=== PATIENT | female | born 1970 | race African-American/Black ===

== ENCOUNTER → 2017-07-06 14:51 | Outpatient (CLI) | payer OTHER ==
[~2017-07-06 14:51] MED LIST: BENADRYL25 MG PO; CLOTRIMAZOLE-BE30 ML TOPICAL; HYDROCODONE-APA1 TAB PO
[2017-07-06 15:39] LABS: BASOPHILS 0.4 % (0-2); EOSINOPHILS 0.7 % (0-7); HEMATOCRIT 35.1 % (36.0-48.0); HEMOGLOBIN 11.2 g/dL (12-16); LYMPHOCYTES 34.6 % (15-50); MCH 26.4 pg (26.0-34.0); MCHC 31.9 g/dL (31.0-37.0); MCV 82.6 fL (80.0-100.0); MEAN PLATELET VOLUME 8.7 fL (7.4-10.4); MONOCYTES 8.4 % (2-11); NEUTROPHILS 55.9 % (40-80); PLATELET COUNT 326 10x3/uL (130-400); RBC 4.25 10x6/uL (4.00-5.40); WBC 5.6 10x3/uL (4.8-10.8)
[2017-07-06 16:04] LABS: ALBUMIN 3.7 g/dL (3.4-5.0); ALKALINE PHOSPHATASE 76 U/L (46-116); ALT (SGPT) 19 U/L (10-68); BILIRUBIN - TOTAL 0.27 mg/dL (0.2-1.3); CALC OSMOLALITY 279 mosm/kg (275-300); CALCIUM 9.2 mg/dL (8.5-10.1); CARBON DIOXIDE 25.5 mmol/L (21.0-32.0); CHLORIDE - SERUM 104 mmol/L (98-107); CREATININE - SERUM 0.8 mg/dL (0.6-1.3); GLUCOSE 77 mg/dL (74-106); LDH 158 U/L (81-234); POTASSIUM - SERUM 4.1 mmol/L (3.5-5.1); PROTEIN - SERUM 7.4 g/dL (6.4-8.2); SODIUM 141 mmol/L (136-145); UREA NITROGEN 12 mg/dL (7-18); eGFR NON AFRICAN AMERICAN 81 mL/min (90-120)
[2017-07-06 16:08] LABS: INR 1.05 (0.85-1.17); PROTIME 13.5 SECONDS (11.6-15.0)
[2017-07-22 10:59] VITALS: BMI 23.7
== END | disposition home or self-care (01) ==
LOC: D.CT 14:51
PROVIDERS: Internal Medicine Gastroenterology
DX: K92.1 Melena (principal); C18.5 Malignant neoplasm of splenic flexure

== ENCOUNTER 2017-07-21 05:52 | Inpatient (IN) | payer OTHER ==
[2017-07-20 11:49] LABS: BASOPHILS 0.5 % (0-2); HEMATOCRIT 35.7 % (36.0-48.0); HEMOGLOBIN 11.6 g/dL (12-16); LYMPHOCYTES 29.3 % (15-50); MCH 26.7 pg (26.0-34.0); MCHC 32.5 g/dL (31.0-37.0); MCV 82.1 fL (80.0-100.0); MEAN PLATELET VOLUME 9.2 fL (7.4-10.4); MONOCYTES 4.8 % (2-11); NEUTROPHILS 64.4 % (40-80); RBC 4.35 10x6/uL (4.00-5.40); RDW 13.8 % (11.5-14.5); WBC 6.3 10x3/uL (4.8-10.8)
[2017-07-20 11:53] LABS: PLATELET COUNT 401 10x3/uL (130-400)
[2017-07-20 11:58] LABS: CALC OSMOLALITY 277 mosm/kg (275-300); CALCIUM 9.3 mg/dL (8.5-10.1); CARBON DIOXIDE 29.1 mmol/L (21.0-32.0); CHLORIDE - SERUM 105 mmol/L (98-107); CREATININE - SERUM 0.8 mg/dL (0.6-1.3); GLUCOSE 88 mg/dL (74-106); POTASSIUM - SERUM 3.7 mmol/L (3.5-5.1); SODIUM 141 mmol/L (136-145); UREA NITROGEN 7 mg/dL (7-18); eGFR NON AFRICAN AMERICAN 81 mL/min (90-120)
[2017-07-20 11:59] LABS: APTT 27.6 SECONDS (22.8-39.4); INR 1.09 (0.85-1.17)
[~2017-07-21] VITALS: Ht 172.7 cm; Wt 70.8 kg
[~2017-07-21 05:52] MED LIST changes: -HYDROCODONE-APA1 TAB PO
[2017-07-21 09:36] VITALS: BP 128/87; BMI 24.3
[2017-07-21 10:12] LABS: HCG URINE NEGATIVE (NEGATIVE)
--- NOTE | 2017-07-21 15:32 | NUR ---
TO ROOM 2510 WITH SANTIAGO CATHER , IV X 2 SITE DRESSING CLEAN AND DRY
--- NOTE | 2017-07-21 16:52 | NUR ---
REPORT CALLED TO REN IRVING
--- NOTE | 2017-07-21 17:34 | NUR ---
PATIENT TO ROOM WITH IV INTACT. VS STABLE. NO COMPLAINTS. CALL LIGHTW ITHINR EACH.
[2017-07-21 17:53] VITALS: BMI 23.7
--- NOTE | 2017-07-21 18:15 | NUR ---
PATIENT DECKHAND OYSTER DREDGE SET UP AND WORKING. REFUSED BSCDS. STATED SHE WOULD WERE THEM AT NIGHT. SANTIAGO INTACT. DRESSING TO ABDOMEN AND BANDAIDS INTACT. FAMILY AT BEDSIDE. CALL LIGHTW ITHINR EACH.
--- NOTE | 2017-07-21 19:52 | NUR ---
RESTING, AT BEDSIDE, DENIES NEEDS, CALL LIGHT IN REACH, BED LOWEST POSITION, WILL CONTINUE TO MONITOR
[2017-07-21 20:00] VITALS: BP 114/74
[2017-07-22] VITALS: BP 117/66
[2017-07-22 04:00] VITALS: BP 105/60
--- NOTE | 2017-07-22 05:00 | NUR ---
PT RESTING IN BED WITH NO DISTRESS. RESPIRATIONS ARE EVEN AND UNLABORED. SIDE RAILS ARE UP X 2. BED IS IN LOWEST POSITION. CALL LIGHT IS WITHIN REACH.
[2017-07-22 05:56] LABS: BASOPHILS 0.1 % (0-2); EOSINOPHILS 0 % (0-7); HEMATOCRIT 33.5 % (36.0-48.0); HEMOGLOBIN 10.9 g/dL (12-16); IMMATURE GRANULOCYTES 0.3 % (0-5); LYMPHOCYTES 11.5 % (15-50); MCH 26.4 pg (26.0-34.0); MCHC 32.5 g/dL (31.0-37.0); MCV 81.1 fL (80.0-100.0); MEAN PLATELET VOLUME 9.6 fL (7.4-10.4); MONOCYTES 5.6 % (2-11); NEUTROPHILS 82.5 % (40-80); PLATELET COUNT 408 10x3/uL (130-400); RBC 4.13 10x6/uL (4.00-5.40)
[2017-07-22 06:13] LABS: WBC 11.3 10x3/uL (4.8-10.8)
--- NOTE | 2017-07-22 07:00 | NUR ---
REPORT RECIEVED ASSUMED CARE. PATIENT IN BED WITH IV INTACT. NO COMPLAINTS AT THIS TIME. CALL LIGHT WITHIN REACH.
[2017-07-22 07:48] LABS: CALC OSMOLALITY 277 mosm/kg (275-300); CALCIUM 8.4 mg/dL (8.5-10.1); CHLORIDE - SERUM 105 mmol/L (98-107); CREATININE - SERUM 0.8 mg/dL (0.6-1.3); GLUCOSE 82 mg/dL (74-106); POTASSIUM - SERUM 3.6 mmol/L (3.5-5.1); SODIUM 141 mmol/L (136-145); UREA NITROGEN 7 mg/dL (7-18); eGFR NON AFRICAN AMERICAN 81 mL/min (90-120)
[2017-07-22 08:09] VITALS: BP 116/61
--- NOTE | 2017-07-22 10:15 | NUR ---
PATIENT SANTIAGO REMOVED PER PHYSICIAN ORDERS. TOLERATED WITH SMALL AMOUNT OF PAIN. IV INTACT. CALL LIGHT WITHIN REACH.
[2017-07-22 10:59] VITALS: Ht 172.7 cm; Wt 70.8 kg
--- NOTE | 2017-07-22 11:30 | NUR ---
PATIENT UP TO BR. VOIDED WITH NO DIFFICULTY. HAD BM WELL. SMALL AMOUNT OF BLOOD NOTED. EXPLAINED TO PATIENT THAT IT IS NORMAL TO HAVE A SMALL AMOUNT OF BLOOD AFTER IN STOOL POST OP. VERBALIZED UNDERSTANDING. AND FAMILY AT BEDSIDE. CALL LIGHT WITHIN REACH.
[2017-07-22 12:51] VITALS: BP 123/72
[2017-07-22 15:36] VITALS: BP 116/69
--- NOTE | 2017-07-22 16:50 | NUR ---
PATIENT AMBULATED AROUND THE UNIT 2 TIMES WITH NO PROBLEMS. IV INTACT. CALL LIGHTW ITHIN REACH.
[2017-07-22 20:00] VITALS: BP 119/70
[2017-07-23] VITALS: BP 113/63
[2017-07-23 04:00] VITALS: BP 123/74
[2017-07-23 05:48] LABS: BASOPHILS 0.1 % (0-2); EOSINOPHILS 0.1 % (0-7); HEMATOCRIT 34.8 % (36.0-48.0); IMMATURE GRANULOCYTES 0.2 % (0-5); LYMPHOCYTES 18.9 % (15-50); MCH 26.1 pg (26.0-34.0); MCHC 31.6 g/dL (31.0-37.0); MCV 82.5 fL (80.0-100.0); MEAN PLATELET VOLUME 9.6 fL (7.4-10.4); MONOCYTES 3.5 % (2-11); NEUTROPHILS 77.2 % (40-80); PLATELET COUNT 421 10x3/uL (130-400); RBC 4.22 10x6/uL (4.00-5.40); RDW 14.4 % (11.5-14.5)
[2017-07-23 06:02] LABS: WBC 8.2 10x3/uL (4.8-10.8)
[2017-07-23 06:05] LABS: CALC OSMOLALITY 274 mosm/kg (275-300); CALCIUM 8.7 mg/dL (8.5-10.1); CHLORIDE - SERUM 104 mmol/L (98-107); CREATININE - SERUM 0.8 mg/dL (0.6-1.3); GLUCOSE 72 mg/dL (74-106); POTASSIUM - SERUM 3.2 mmol/L (3.5-5.1); SODIUM 139 mmol/L (136-145); UREA NITROGEN 7 mg/dL (7-18); eGFR NON AFRICAN AMERICAN 81 mL/min (90-120)
--- NOTE | 2017-07-23 08:00 | NUR ---
ASSESSMENT PER FLOW SHEET.PT WITHOUT DISTRESS.DRESSING TO ABDOMEN CDI. LAP SITES X2 TO RLQ CDI. DENIES NEEDS AT PRESENT. REPORTS SLIGHTLY BLOODY STOOL YESTERDAY.PT STATES SHE IS PASSING GAS.MONITOR,CALL LIGHT IN REACH.
[2017-07-23 08:11] VITALS: BP 127/72
[2017-07-23 12:45] VITALS: BP 124/69
--- NOTE | 2017-07-23 15:13 | NUR ---
TOLERATING CLD. PT STATES SHE HAS BURPED AND PASSED GAS AGAIN AFTER EATING
[2017-07-23 15:43] VITALS: BP 127/78
--- NOTE | 2017-07-23 19:35 | NUR ---
REMAINS WITHOUT NEEDS,WITHOUT CHANGE.CONT PLAN OF CARE
--- NOTE | 2017-07-23 20:11 | NUR ---
PATIENT IS ALERT AND ORIENTED. DENIES NEEDS. NO SIGNS OF DISTRESS.
[2017-07-23 21:20] VITALS: BP 119/68
[2017-07-24 00:56] VITALS: BP 110/64
[2017-07-24 04:52] VITALS: BP 120/67
--- NOTE | 2017-07-24 08:00 | NUR ---
ASSESSMENT PER FLOW SHEET.PT WITHOUT DISTRESS. DENIES PAIN AT PRESENT.TOLERATING CLD AND STATES PASSING GAS.
[2017-07-24 08:02] VITALS: BP 113/71
--- NOTE | 2017-07-24 12:13 | NUR ---
NUTRITION F/U CHART REVIEWED. DIET FULL LIQUID >AAT. WILL PROVIDE DIET, MONITOR PO INTAKE. PT PROGRESS. RD FOLLOWING
--- NOTE | 2017-07-24 12:22 | NUR ---
Patient Name: TG MEDLEY Admission Status: Elective Accout number: [id number] Admission Date: 07-21-2017 : 1970 Admission Diagnosis:MALIGNANT NEOPLASM OF SIGMOID COLON Attending: LEXIS BUNCH Current LOS: 3 Anticipated DC Date: 07-27-2017 Planned Disposition: Home Primary Insurance: [facility] PPO Discharge Planning Comments: CM MET WITH PATIENT AND FRIEND (RUDY) REGARDING D/C NEEDS AND PLANS. PATIENT STATED RUDY WILL DRIVE HER HOME AT DISCHARGE. PATIENT STATED THERE ARE 2 STEPS TO ENTER THEIR HOME AND NO STAIRS INSIDE. PATIENT IS INDEPENDENT WITH HER CARE AND HAS NO DME AT HOME. PATIENTS PCP IS DR. PIERCE AND PHARMACY IS [facility] AT [facility]. PATIENT IS REFUSING HOME HEALTH AT THIS TIME. CM WILL CONTINUE TO FOLLOW D/C NEEDS AND PLANS. PCP DR. KARI BEAN AT [address] RUDY (FRIEND-LIVES WITH) [phone] Field Hockey And Lacrosse Coach: Jade Taylor Is the patient Alert and Oriented? Yes 0 * How many steps to enter\exit or inside your home? 2 0 * PCP DR. PIERCE 0 * Pharmacy [facility] 0 * Preadmission Environment Home with Family 0 * ADLs Independent 0 * Equipment None 0 * List name and contact numbers for known caregivers / representatives who currently or will assist patient after discharge: RUDY JACKSON (FRIEND) [phone] 0 * Community resources currently utilized None 0 * Additional services required to return to the preadmission environment? Yes 0 * Can the patient safely return to the preadmission environment? Yes 0 * Has this patient been hospitalized within the prior 30 days at any hospital? No 0 Grand Total: 0
[2017-07-24 12:26] VITALS: BP 126/77
--- NOTE | 2017-07-24 13:40 | NUR ---
AMBULATING IN HALLS.PT REMAINS WITHOUT DISTRESS.
[2017-07-24] MEDS ORDERED: HYDROCODONE-APA1 TAB PO (15:02)
[2017-07-24 15:51] VITALS: BP 119/72
--- NOTE | 2017-07-24 17:36 | NUR ---
IV DCD X2 WITH CATH INTACT.DISCHARGE INSTRUCTIONS,STATES UNDERSTANDING. RX TO PT FOR PAIN MEDS PER
--- NOTE | 2017-07-24 17:56 | NUR ---
LEFT UNIT VIA WHEELCHAIR
--- NOTE | 2017-07-27 14:45 | OP ---
PATIENT NAME: TG MEDLEY MEDICAL RECORD: [id number] :[birth year] LOCATION:D.MS [id number] ADMISSION DATE:07/21/17 SURGEON: ESA BUNCH MD DATE OF OPERATION: 07/21/2017 PREOPERATIVE DIAGNOSIS: Sigmoid colon cancer. POSTOPERATIVE DIAGNOSIS: Sigmoid colon cancer. PROCEDURE: Hand-assisted laparoscopic sigmoid colectomy. SURGEON: Esa Bunch MD REPORT OF PROCEDURE: The patient's abdomen was prepped and draped in sterile fashion. A cutdown was made in the suprapubic region and electrocautery was used to dissect through the subcutaneous tissues. We penetrated the fascia and entered the abdominal cavity. Once inside, a Gelport was inserted. We were able to visualize the mass, and the patient's sigmoid colon was actually free and mobile. We transected the bowel at the proximal rectum using a 55 blue load STEFANO stapler. The mesentery was then taken down and continued to the superior hemorrhoidal vessel as it took off from the aorta. At this point, we placed 5-mm trocars just anterior to the right anterior superior iliac crest and in the right abdomen at the level of the umbilicus. At this point, we insufflated the abdomen and inspected. The patient's liver had no sign of any external lesions present. The abdominal wall had no sign of carcinomatosis, and the patient's omentum appeared to be normal with no masses or lesions. There was no sign of ascitic fluid. We took down the lateral attachments of the white line of Toldt on the left colon and continued this up to the sigmoid colon. The sigmoid colon was not mobilized. At this point, we had good mobilization of the left colon. I was able to visualize the patient's left ureter and it was not damaged. The superior hemorrhoidal vessel was transected at its base using a 45 white load Endo-STEFANO stapler. The distal descending colon was then transected using a 55 blue load STEFANO stapler. At this point, we had the sigmoid colon completely freed up and the mass was easily palpated in the middle of the specimen. Grossly, the patient's lymph nodes appeared to be mildly enlarged. The specimen was sent off for permanent. An opening was made at the base of the distal descending colon and a 2-0 Prolene was used to make a pursestring. A 29 EEA anvil was inserted and the pursestring was tied down tightly. We then placed multiple anal dilators up through the anus and rectum and then followed with a 29 EEA stapler. An end-to-end anastomosis was performed under direct visualization. At the conclusion of this, there were noted to be 2 intact rings of tissue in the stapler. We then placed air into the rectum with the anastomosis under water and saw no signs of leak being present. I then oversewed the staple line using multiple lemberted 3-0 silks. At this point, the omentum was pulled down into the pelvis and rested over top of the anastomosis. We irrigated out the abdomen thoroughly with normal saline and assured there was no sign of any active bleeding, which there was none. At this point, the ports and insufflation were then removed. All of our gloves and gowns were changed at this time. The midline fascia was closed with running #1 looped PDS times 2. We then irrigated out the abdominal wound and reapproximated the edges with interrupted 3-0 Vicryls. The skin incisions were all closed with renetta and dressed appropriately. COMPLICATIONS: None. OPERATIVE REPORT [id number] TG MEDLEY CONDITION: Stable. ANESTHESIA: General endotracheal. BLOOD LOSS: Minimal. TRANSINT:[id number] Voice Confirmation ID: [id number] DOCUMENT ID: [id number] ESA BUNCH MD at 1445 CC: BLAKE PIERCE DO, SIMI NUNN MD and CLAUDIA DILLARD [id number] DICTATION DATE: 07/21/17 1332 TOBACCO DRYING MACHINE OPERATOR: 07/21/17 1429 DIS IN 07/24/17 [facility] [address] [place] [address]
--- NOTE | 2017-09-25 09:56 | DS ---
PATIENT:TG MEDLEY :[birth year] MEDICAL RECORD: [id number] DISCHARGE SUMMARY ADMISSION DATE: 07/21/17 DISCHARGE DATE: 07/24/17 DATE OF ADMISSION: 07/21/2017. DATE OF DISCHARGE: 07/24/2017. ADMISSION DIAGNOSIS: Sigmoid colon cancer. DISCHARGE DIAGNOSIS: Sigmoid colon cancer. PROCEDURE: Hand-assisted laparoscopic sigmoid colectomy on 07/21/2017. CONSULTATIONS: None. REPORT OF HOSPITALIZATION: The patient was admitted to the hospital after a successful hand-assisted laparoscopic sigmoid colectomy. The patient had a normal postoperative course. Initially, she just had pain control and mobilization. Eventually, we were able to start the patient on a diet, which she was able to tolerate and advance up appropriately. On the day of discharge, she was tolerating a regular diet and ambulating with minimal support. The patient's pathology report returned and this showed that patient did have invasive adenocarcinoma of the sigmoid colon with 0 out of 15 lymph nodes showing signs of metastatic disease. The path report was discussed with the patient and she was discharged home. DISCHARGE INSTRUCTIONS: Return to clinic or call with any questions or concerns, fevers, chills, nausea, vomiting, or worsening abdominal pain. ACTIVITIES: No heavy lifting or straining for 6 weeks postoperatively. FOLLOWUP: In clinic with me in 1 week. DISCHARGE MEDICATIONS: Resume home medications with the inclusion of [place] 10. TRANSINT:[id number] Voice Confirmation ID: [id number] DOCUMENT ID: [id number] LEXIS BUNCH MD at 0956 CC: [id number] DICTATION DATE: 09/10/17 1220 HOME DAY CARE PROVIDER: 09/10/17 1607 DIS IN 07/24/17 [facility] [address] [place] [address]
== END 2017-07-24 17:57 | disposition home or self-care (01) | DRG 331 ==
LOC: D.SDCHOLD 05:52 → D.MS 17:00 → D.SDCHOLD 07-23 14:42 → D.MS 07-23 14:44
PROVIDERS: Anesthesiology; ADMIT Surgery
PROC: 0DTN0ZZ Resection of Sigmoid Colon, Open Approach (ICD-10-PCS; principal; 2017-07-21 11:00)
DX: C18.7 Malignant neoplasm of sigmoid colon (principal)

== ENCOUNTER 2018-11-11 08:30 | Day surgery (SDC) | payer OTHER ==
[2018-11-10 15:04] LABS: BASOPHILS 0.5 % (0-2); EOSINOPHILS 1.4 % (0-7); HEMATOCRIT 35.6 % (36.0-48.0); HEMOGLOBIN 11.8 g/dL (12-16); LYMPHOCYTES 32.9 % (15-50); MCH 27.6 pg (26.0-34.0); MCHC 33.1 g/dL (31.0-37.0); MCV 83.4 fL (80.0-100.0); MEAN PLATELET VOLUME 8.7 fL (7.4-10.4); MONOCYTES 6.2 % (2-11); RBC 4.27 10x6/uL (4.00-5.40); RDW 13.5 % (11.5-14.5); WBC 5.8 10x3/uL (4.8-10.8)
[2018-11-10 15:16] LABS: CALC OSMOLALITY 277 mosm/kg (275-300); CALCIUM 9.1 mg/dL (8.5-10.1); CARBON DIOXIDE 30.3 mmol/L (21.0-32.0); CHLORIDE - SERUM 103 mmol/L (98-107); CREATININE - SERUM 0.8 mg/dL (0.6-1.3); GLUCOSE 84 mg/dL (74-106); POTASSIUM - SERUM 3.8 mmol/L (3.5-5.1); SODIUM 141 mmol/L (136-145); UREA NITROGEN 7 mg/dL (7-18); eGFR NON AFRICAN AMERICAN 81 mL/min (90-120)
[2018-11-10 15:21] LABS: PLATELET COUNT 298 10x3/uL (130-400)
[~2018-11-11] VITALS: Ht 175.3 cm; Wt 68.9 kg
--- NOTE | ~2018-11-11 | OP ---
PATIENT NAME: TG MEDLEY MEDICAL RECORD: [id number] :68 LOCATION:DALYX ADMISSION DATE: SURGEON: ESA BUNCH MD DATE OF OPERATION: 11/11/2018 PREOPERATIVE DIAGNOSIS: History of colon cancer with elevated CEA levels. POSTOPERATIVE DIAGNOSIS: History of colon cancer with elevated CEA levels. PROCEDURE: Diagnostic laparoscopy with pelvic biopsy. SURGEON: Esa Bunch MD REPORT OF PROCEDURE: The patient's abdomen was prepped and draped in sterile fashion. A Veress needle was inserted in the left upper quadrant and the abdomen was insufflated. A 5-mm trocar was placed in the right lateral abdomen. At this point, we could see the Veress needle and there was no sign of any injury to bowel or surrounding structures. A 5-mm trocar was placed near the epigastrium and a final one was placed in the left lateral abdomen. The patient's abdominal wall and omentum looked normal with no masses or lesions visible. We inspected the liver and the top and bottom surfaces of the liver appeared to be normal with no signs of any distinct masses. The anterior aspect of the stomach was normal with no inflammation or masses. We elevated the patient's small bowel and looking at the mesentery and posterior abdominal wall, there were no masses or lesions and I did not see any evidence of any retroperitoneal lymph nodes or masses. Down in the pelvis, we could see the tip of the appendix and as we followed this back to the right colon, the appendix appeared to be normal. The right ovary was normal in caliber with normal appearing fallopian tube. The left ovary had a very large cyst present and the fallopian tube appeared normal. As we progressed in the pelvis, there was a little bit of clear normal appearing ascitic fluid and in the deep pelvis near the bladder, there is a firm nodule present just to the right of midline. I was not able to mobilize this well, and it appeared to be less than 2 cm in size. There was a portion of this which was sticking off and I was able to transect this using electrocautery. We placed this into an EndoCatch bag and sent this off for permanent specimen. Only about half of this mass was completely excised for fear of what may be underneath it and I was not 100% sure this was a cancerous lesion. The remainder of the pelvis appeared to be normal. As we pulled back to the pelvic inlet on the right of midline, there were some nodules underneath the peritoneum. I opened up this peritoneum and the nodules are actually incorporated into the vascular structures and were not lymph nodes, seem to be more of a calcified lesion. Due to it being a portion of these vascular structures, I elected not to remove these. On the left side of the abdomen at the pelvic inlet, I saw no evidence of these masses being visible. At this point, we inspected the remainder of the patient's colon and there was no sign of any masses or lesions visible. The anastomosis at the pelvic inlet from the previous sigmoid colectomy was well healed with no signs of any abscesses or strictures. There were no adhesions present throughout the patient's abdominal cavity. At this point, the insufflation and the trocars were removed. The 5-mm trocar in the right lateral abdomen had been exchanged for a 12-mm trocar to facilitate removal of the lesion. This fascial area was closed with an interrupted 0 Vicryl. The wounds were then irrigated out with normal saline and infused with 10 mL of 0.25% Marcaine with epinephrine and then closed with subcutaneous 5-0 Monocryl. OPERATIVE REPORT [id number] TG MEDLEY COMPLICATIONS: None. CONDITION: Stable. ANESTHESIA: General endotracheal and local. BLOOD LOSS: Minimal. TRANSINT:[id number] Voice Confirmation ID: [id number] DOCUMENT ID: [id number] ESA BUNCH MD CC: BLAKE PIERCE DO and YUNI LIRA MD [id number] DICTATION DATE: 11/11/18 1327 ITEM PROCESSING CLERK: 11/11/18 1408 REG [facility] [address] [place] [id number]
[~2018-11-11 08:30] MED LIST changes: +HYDROCODONE-APA1 TAB PO
[2018-11-11 08:54] VITALS: BP 124/76; Ht 175.3 cm; Wt 68.9 kg
[2018-11-11 09:20] LABS: HCG URINE NEGATIVE (NEGATIVE)
[2018-11-11 11:10] LABS: APTT 30.2 SECONDS (22.8-39.4); INR 1.04 (0.85-1.17); PROTIME 13.1 SECONDS (11.6-15.0)
[2018-11-11] MEDS ORDERED: HYDROCODON-ACE1 EA10 PO (13:21)
--- NOTE | 2018-11-11 13:57 | NUR ---
CARE TO LAURA SHERIDAN @9023
--- NOTE | 2018-11-11 16:00 | NUR ---
PATIENT AMBULATES TO BATHROOM AND VOIDS LARGE AMOUNT IN TOILET WITHOUT DIFFICULTY. RIGHT AC PIV DC'D WITH TIP INTACT. PATIENT DRESSING IN PERSONAL CLOTHING 1615 DISCHARGE INSTRUCTIONS REVIEWED WITH PATIENT AND SPOUSE, DISCHARGED HOME VIA WHEELCHAIR TO PRIVATE VEHICLE WITH SPOUSE
== END 2018-11-11 16:15 | disposition home or self-care (01) ==
LOC: D.OPS 08:30
PROVIDERS: Anesthesiology; ATTEND Surgery
DX: C79.89 Secondary malignant neoplasm of other specified sites (principal); R97.0 Elevated carcinoembryonic antigen [CEA]; Z85.038 Personal history of other malignant neoplasm of large intestine

== ENCOUNTER 2018-12-16 05:55 | Day surgery (SDC) | payer OTHER ==
[2018-12-15 16:46] LABS: BASOPHILS 0.5 % (0-2); EOSINOPHILS 1.4 % (0-7); HEMATOCRIT 35.1 % (36.0-48.0); HEMOGLOBIN 11.6 g/dL (12-16); IMMATURE GRANULOCYTES 0.2 % (0-5); LYMPHOCYTES 31.7 % (15-50); MCH 27.4 pg (26.0-34.0); MCV 82.8 fL (80.0-100.0); MONOCYTES 5.4 % (2-11); NEUTROPHILS 60.8 % (40-80); PLATELET COUNT 297 10x3/uL (130-400); RBC 4.24 10x6/uL (4.00-5.40); RDW 13.5 % (11.5-14.5); WBC 6.3 10x3/uL (4.8-10.8)
[2018-12-15 16:52] LABS: APTT 27.5 SECONDS (22.8-39.4); INR 1.03 (0.85-1.17)
[2018-12-15 16:55] LABS: CALC OSMOLALITY 281 mosm/kg (275-300); CARBON DIOXIDE 30.2 mmol/L (21.0-32.0); CHLORIDE - SERUM 106 mmol/L (98-107); CREATININE - SERUM 0.8 mg/dL (0.6-1.3); GLUCOSE 92 mg/dL (74-106); POTASSIUM - SERUM 3.8 mmol/L (3.5-5.1); SODIUM 142 mmol/L (136-145); UREA NITROGEN 10 mg/dL (7-18); eGFR NON AFRICAN AMERICAN 81 mL/min (90-120)
[~2018-12-16] VITALS: Ht 172.7 cm; Wt 68.5 kg
[~2018-12-16 05:55] MED LIST changes: +HYDROCODON-ACE1 EA10 PO
[2018-12-16] MEDS ORDERED: HYDROCODON-ACE1 EA10 PO (06:25)
[2018-12-16] MEDS ORDERED: VITAMIN E200 UNI1 PO (06:26)
[2018-12-16] MEDS ORDERED: VITAMIN B-12500 MC1 PO (06:26)
[2018-12-16] MEDS ORDERED: MULTI-DAY VITAM1 TAB PO (06:26)
[2018-12-16] MEDS ORDERED: VITAMIN D31000 UNIT PO (06:27)
[2018-12-16 06:30] VITALS: BP 112/88; BMI 23.0
[2018-12-16 06:54] LABS: HCG URINE NEGATIVE (NEGATIVE)
--- NOTE | 2018-12-16 08:41 | NUR ---
YELLOW FINS USED FOR LITH POSITION FOR DR. SHERIN BRENNAN
--- NOTE | 2018-12-16 11:18 | OP ---
PATIENT NAME: TG MEDLEY MEDICAL RECORD: [id number] :68 LOCATION:D.OPS ADMISSION DATE: SURGEON: XAVI DUFF MD DATE OF OPERATION: 12/16/2018 SURGEON: Xavi Duff MD ANESTHESIA: General anesthesia by Austin Brody CRNA DIAGNOSES: Metastatic colon cancer with a left ovarian cyst. PROCEDURES: Cystoscopy, bilateral ureteral stent insertion. FINDINGS: Single ureteral orifices bilaterally. No bladder tumors. Left distal ureteral obstruction. BLOOD LOSS: None. SPECIMENS: None. CLINICAL HISTORY: This is a 48-year-old female, who has a history of colon cancer, which has been resected. She has a known metastatic mass in the right pelvis. Dr. Seymour is going to attempt removal of this mass today as well as placement of a port for chemotherapy. Dr. Corona will be also involved in the surgery to deal with a left ovarian cyst. They have requested placement of bilateral ureteral stents to identify the ureters during the surgery. The patient has been given general anesthesia. She has been placed in lithotomy position and she has been prepped and draped. DESCRIPTION OF PROCEDURE: Cystoscopy was performed using a 21-Tanzanian cystoscope with 30-degree lens. Single ureteral orifices are seen on each side. On the left side, I inserted the 5-Tanzanian open-ended ureteral catheter. I could not get past about the distal one-third of the ureter as there was some obstruction here. I had to place a Sensor wire through the lumen of the ureteral catheter up into the renal pelvis. Finally, I was able to get past the obstruction site and get the catheter all the way up into the renal pelvis. The wire was then withdrawn. On the right side, the ureteral catheter went up without any resistance. At this point, the scope was removed, leaving the [address] A 16-Tanzanian Galindo catheter was then placed into the bladder and the balloon was inflated with 10 cc of sterile water. A connecting device was used to allow the ureteral catheters to drain into the Galindo catheter lumen. The entire assembly was put to bag drainage. The patient will be reprepped and redraped for Dr. Seymour and Dr. Corona's surgery. TRANSINT:[id number] Voice Confirmation ID: [id number] DOCUMENT ID: [id number] XAVI DUFF MD at 1111 CC: [id number] DICTATION DATE: 12/16/18 0932 GEARCASE ASSEMBLER: 12/16/18 1034 REG [facility] [address] [place] [id number]
--- NOTE | 2018-12-16 12:47 | NUR ---
PT ADMITTED FROM SX. 97.4. 99% ON RA. 95/59.73.16. NO S/S OF ACUTE DISTRESS. AT BEDIDE. CL IN PLACE.
[2018-12-16 12:49] VITALS: BP 95/59
[2018-12-16 13:08] VITALS: BP 109/71; BMI 23.0
--- NOTE | 2018-12-16 18:37 | NUR ---
PT RESTING IN BED, "I AM CONFUSED, I WAS SUPPOSE TO GO HOME AFTER SX" EXPLAINED TO PT THAT THE SURGERY WAS MORE EXTENSIVE AND THAT SHE NEEDED TO BE MONITORED OVERNIGHT. PT TEARFUL, "I AM SCARED I JUST DO NOT KNOW WHAT IS GOING ON." CONSOLED PT AND PT "FEELS BETTER". ASSISTED PT TO SIDE OF BED. PT STATES, "THIS FEELS SO GOOD." NO S/S OF ACUTE DISTRESS. CL IN PLACE. AT BEDSIDE.
--- NOTE | 2018-12-16 18:53 | NUR ---
I have reviewed this patient and I concur with the Shift Assessment completed by the Licensed Practical Nurse today this shift.
--- NOTE | 2018-12-16 20:10 | NUR ---
PT RESTING IN BED. ALERT AND ORIENTED. NO SIGNS OF DISTRESS. BREATHING EVEN AND UNLABORED. PT STATES NO PROBLEMS AT THIS TIME. IV SITE RT HAND DRESSING CLEAN DRY AND INTACT. NO SIGNS OF INFECTION. SKIN CLEAN DRY AND INTACT. ABD DRESSING CLEAN DRY AND INTACT. SANTIAGO IN PLACE NO SIGNS OF INFECTION AT INSERTION SITE. URINE LIGHT PINK IN COLOR AND CLEAR. NO LOWER LEG SWELLING PRESENT. WILL CONTINUE PLAN OF CARE. CALL LIGHT IN REACH. BED LOWERED AND LOCKED. BED RAILS UP X2.
[2018-12-16 21:08] VITALS: BP 120/70
[2018-12-17 01:01] VITALS: BP 107/65
--- NOTE | 2018-12-17 01:55 | NUR ---
I have reviewed this patient and I concur with the Shift Assessment completed by the Licensed Practical Nurse today this shift.
[2018-12-17 04:17] LABS: BASOPHILS 0.1 % (0-2); EOSINOPHILS 0 % (0-7); HEMATOCRIT 28.3 % (36.0-48.0); IMMATURE GRANULOCYTES 0.3 % (0-5); LYMPHOCYTES 18.6 % (15-50); MCH 27.1 pg (26.0-34.0); MCHC 32.5 g/dL (31.0-37.0); MCV 83.2 fL (80.0-100.0); MONOCYTES 9.1 % (2-11); NEUTROPHILS 71.9 % (40-80); PLATELET COUNT 261 10x3/uL (130-400); RDW 13.6 % (11.5-14.5); WBC 6.7 10x3/uL (4.8-10.8)
[2018-12-17 04:19] LABS: HEMOGLOBIN 9.2 g/dL (12-16)
[2018-12-17 04:21] LABS: CALC OSMOLALITY 278 mosm/kg (275-300); CALCIUM 7.6 mg/dL (8.5-10.1); CHLORIDE - SERUM 107 mmol/L (98-107); CREATININE - SERUM 0.8 mg/dL (0.6-1.3); GLUCOSE 115 mg/dL (74-106); POTASSIUM - SERUM 4.2 mmol/L (3.5-5.1); SODIUM 140 mmol/L (136-145); UREA NITROGEN 11 mg/dL (7-18); eGFR NON AFRICAN AMERICAN 81 mL/min (90-120)
[2018-12-17 05:19] VITALS: BP 112/72
[2018-12-17 08:43] VITALS: BP 120/68
--- NOTE | 2018-12-17 13:03 | NUR ---
SANTIAGO CATHETER WAS CLAMPED FOR APPROX 20 MINUTES. PATIENT FELT URGE TO URINATE. UNCLAMPED AND URINE FLOWED INTO TUBE. SANTIAGO CATHETER AND STAT-LOCK REMOVED. PATIENT TOLERATED WELL.
[2018-12-17 13:15] VITALS: Ht 172.7 cm; Wt 68.5 kg
[2018-12-17 13:31] VITALS: BP 126/78
--- NOTE | 2018-12-17 14:04 | OP ---
PATIENT NAME: TG MEDLEY MEDICAL RECORD: [id number] :68 LOCATION:D.MS Calderon.2209 ADMISSION DATE: SURGEON: ESA BUNCH MD DATE OF OPERATION: 12/16/2018 PREOPERATIVE DIAGNOSES: 1. Metastatic colon cancer with mets in the pelvis. 2. Left ovarian mass. 3. History of colon cancer. POSTOPERATIVE DIAGNOSES: 1. Metastatic colon cancer with mets in the pelvis. 2. Left ovarian adenocarcinoma metastasis. 3. History of colon cancer. PROCEDURES: 1. Bilateral ureteral stent placement by Dr. Maldonado. 2. Laparoscopic converted to open abdominal exploration. 3. Right oophorectomy by Dr. Hou. 4. Excision of pelvic metastasis. 5. Left subclavian vein port with fluoroscopic guidance. SURGEON: Esa Bunch MD CO-SURGEONS: 1. Charles Hou MD 2. Xavi Maldonado MD REPORT OF OPERATION: The patient's perineal region was prepped and draped in sterile fashion. At this point, Dr. Maldonado placed bilateral ureteral stents. We then prepped and draped the abdomen along with the left chest. A needle was used to cannulate the left subclavian vein and a guidewire was advanced with ease. Fluoro was used to note that the wire was in good position in the venous system. A skin incision was made on the left superior lateral chest and a subcutaneous pouch was made over the pectoral fascia. The catheter was tunneled between this and the wire exit site. The port was then sutured to the pectoral fascia using interrupted 4-0 Prolenes. The catheter was cut with a beveled tip at 23-cm. The dilator trocar device was placed over the wire and the wire and dilator were removed. The catheter tip was advanced through the trocar. There was noted to be curling up so we replaced the wire and we were able to reposition the wire in good position in the venous system. We then placed it back on the port. We flushed the port with normal saline and we got good blood return. The subcutaneous tissues were then reapproximated with interrupted 3-0 Vicryl and the skin was closed with subcutaneous 5-0 Monocryl. We accessed the port one last time. We were able to get blood return, but it was more difficult. We did get good blood return and it flushed easily with heparinized saline. We then applied a dressing and handed this portion off to the anesthesia team to use as an IV access. The abdomen was approached. A skin incision was made on the superior aspect of the umbilicus. A 0 Vicryls were placed in the fascia bilaterally and the fascia was incised with 15-blade. I bluntly entered the abdominal cavity and placed a 12-mm Sherman port. Under direct visualization, a 5-mm trocar was placed in the bilateral lower quadrants. As we inspected the pelvis, the left ovarian tumor was much larger, filling up most of the pelvic cavity. I tried to see if I could flip this over and upon pushing on it, it was perforated and it did leak out some contents. At this OPERATIVE REPORT [id number], Dr. Hou entered the room. After a short inspection, we elected just to perform a lower midline incision. Electrocautery was used to dissect through the subcutaneous tissues and fascia until we entered the abdominal cavity. A medium Ed was inserted as a wound protector. At this point, Dr. Hou performed an excision of the patient's left ovary with the cyst. He will dictate this portion of the procedure. Once we had the ovary and cyst removed, it was sent for frozen specimen and it came back as metastatic adenocarcinoma. Any bleeding that was found was treated with electrocautery. We then were able to look deep in the pelvis where the metastatic lesion was present on the right side of the pelvic floor. I was able to find this lesion. There was some inflammatory change around it which is likely from her previous surgery. I was able to come completely around this mass and excise it and what appeared to be grossly complete specimen. Once it was removed, it was sent off for permanent specimen. There were 2 other little nodules on the anterior aspect of the rectum, which easily came off with manipulation and these 2 were sent off for permanent specimen. I did not see any evidence of any further metastatic disease in the pelvic floor. We irrigated out the pelvis with sterile water. Any bleeding that was found was treated with electrocautery. We then put a wrist in the 2 wound beds to discontinue any oozy bleeding. At this point, the 12-mm trocar site fascia was closed with an interrupted 0 Vicryls times 3. The lower midline incision was closed with running #1 loop PDS times 2. The wounds were then irrigated out with normal saline and the lower midline incision was closed with renetta and the 3 trocar sites were closed with subcutaneous 5-0 Monocryl. COMPLICATIONS: None. CONDITION: Stable. ANESTHESIA: General endotracheal. BLOOD LOSS: 200 mL. TRANSINT:[id number] Voice Confirmation ID: [id number] DOCUMENT ID: [id number] ESA BUNCH MD at 1404 CC: CHARLES HOU MD, JAYMIE MADISON LAI, ROBERT S MD and LIRA, [id number] DICTATION DATE: 12/16/18 1122 PASSENGER SCREENER: 12/16/18 1228 REG [facility] [address] [place] [id number]
--- NOTE | 2018-12-17 15:14 | NUR ---
PATIENT REPORTS HAVING URINATED TWICE SINCE SANTIAGO REMOVAL. PRESENTLY IN BATHROOM TO URINATE AGAIN.
--- NOTE | 2018-12-17 17:55 | NUR ---
I have reviewed this patient and I concur with the Shift Assessment completed by the Licensed Practical Nurse today this shift.
[2018-12-17 20:00] VITALS: BP 126/86
--- NOTE | 2018-12-17 20:10 | NUR ---
PT RESTING IN BED. ALERT AND ORIENTED. NO SIGNS OF DISTRESS. BREATHING EVEN AND UNLABORED. PT STATES NO PROBLEMS AT THIS TIME. IV SITE RT FA DRESSING CLEAN DRY AND INTACT. NO SIGNS OF INFECTION. LT CHEST PORT DRESSING CLEAN DRY AND INTACT. NO SIGNS OF INFECTION. BOWEL SOUNDS ACTIVE. ABD DRESSING CLEAN DRY AND ITNACT. NO LOWER LEG SWELLING PRESENT. WILL COTNINUE PLAN OF CARE. CALL LIGHT IN REACH. BED LOWERED AND LOCKED. BED RAILS UP X1.
[2018-12-18] VITALS: BP 128/71
[2018-12-18 03:00] VITALS: BP 131/68
--- NOTE | 2018-12-18 03:22 | NUR ---
I have reviewed this patient and I concur with the Shift Assessment completed by the Licensed Practical Nurse today this shift.
[2018-12-18 08:43] VITALS: BP 142/89
[2018-12-18 13:50] VITALS: BP 135/81
[2018-12-18] MEDS ORDERED: DILAUDID2 MG PO (16:31)
[2018-12-18 17:55] VITALS: BP 141/87
--- NOTE | 2018-12-18 18:25 | NUR ---
MCCLAIN NEEDLE REMOVED BY JONAH FRANCIS RN. DISCHARGE INSTRUCTIONS GIVEN BY JONAH FRANCIS. RIGHT HAND IV THERAPY DC'ED BY JONAH FRANCIS WITH IV TIP INTACT. PT VERBALIZED UNDERSTANDING
--- NOTE | 2018-12-20 09:48 | NUR ---
16 FR LUBRI MARBIN CATHETER PLACED PER DR. DUFF WITH BLOOD TINGED URINE ON INSERTION. 5 FR URETERAL CATHETERS PLACED IN MAT URETERS PER DR DUFF AT BEGINNING OF CASE AND REMOVED AT END PER RADHA. VO DR. BUNCH.
--- NOTE | 2018-12-29 13:09 | OP ---
PATIENT NAME: TG MEDLEY MEDICAL RECORD: [id number] :68 LOCATION:D.OPS ADMISSION DATE: SURGEON: CHARLES HOU MD DATE OF OPERATION: 12/16/2018 [employer] OPERATIVE CONSULT NOTE PREOPERATIVE DIAGNOSES: 1. Colon cancer. 2. Fibroid uterus. 3. Left adnexal mass. POSTOPERATIVE DIAGNOSES: 1. Metastatic colon cancer to ovary and pelvis. 2. Fibroid uterus. PROCEDURE: 1. Exploratory laparotomy. 2. Left salpingo-oophorectomy. PRIMARY SURGEON: Esa Seymour MD CONSULTED SURGEON: Charles Hou MD ANESTHESIOLOGIST: Chris Ledesma MD ANESTHESIA: General. FINDINGS: For [employer] portion of this procedure, right ovary is enlarged with a solid tumor. There is no ascites identified. Uterus shows evidence of fibroids. Right ovary and tube was unremarkable. SPECIMENS: Right ovary. SPECIMEN DISPOSITION: Frozen section with evidence of metastatic colon cancer. Tissue sent for permanent. ESTIMATED BLOOD LOSS: Please see primary operative note. FLUIDS: Please see primary operative note. URINE OUTPUT: Please see primary operating room. COMPLICATIONS: None. DRAINS: [id number]. INDICATION: The patient is a 48-year-old female with known history of primary colon cancer. The patient on imaging has complex adnexal mass. [employer] consulted to address adnexal mass. DESCRIPTION OF PROCEDURE: After vertical incision made and pelvis entered, the ovary was identified, approximately 7-8 cm in size. The mass was palpated and felt to be mostly solid. Uterus has irregular contour consistent with fibroids. Dissection was begun posteriorly. The infundibulopelvic ligament was doubly OPERATIVE REPORT [id number] TG MEDLEY clamped, cut and tied with [id number] stitch. The dissection was carried down underneath the ovary laterally until dense adhesions were encountered. Attention was now directed to the midline where the uteroovarian ligament and tube are clamped with 2 Lorri clamps and the pedicle developed sharply. Lorri stitches were applied here for hemostasis. Dissection now continues down both sharply and bluntly and the ovary was removed from its attachment to the sidewall. During the process of dissection, the ovary was disrupted and removed in segments. Once the bulk of the ovary was removed, the pelvic sidewall and ovarian fossa was inspected and sufficient tissue removal was completed with no evidence of large mass of ovarian tissue remaining. Hemostasis was achieved in the pelvic sidewall and ovarian fossa. After this, the deep pelvis was addressed by primary surgeon. TRANSINT:[id number] Voice Confirmation ID: [id number] DOCUMENT ID: [id number] CHARLES HOU MD at 1309 CC: [id number] DICTATION DATE: 12/29/18 0806 HEMODIALYSIS PATIENT CARE SPECIALIST: 12/29/18 1242 [facility] 12/18/18 [id number] [place] [address]
== END 2018-12-18 18:20 | disposition home or self-care (01) ==
LOC: D.MS 05:55 → D.OPS 05:55 → D.MS 11:53 → D.OPS 12-18 18:20
PROVIDERS: Anesthesiology; ATTEND Surgery
DX: C79.89 Secondary malignant neoplasm of other specified sites (principal); C18.7 Malignant neoplasm of sigmoid colon